=== PATIENT | male | born 1985 | race Caucasian/White ===

== ENCOUNTER 2023-10-14 16:00 | Outpatient (CLI) | payer BC | END 2023-10-14 16:01 | disposition home or self-care (01) | LOC: CSHSLEEP 16:00 | PROVIDERS: ATTEND Family Medicine | DX: G47.10 Hypersomnia, unspecified (principal); G47.9 Sleep disorder, unspecified; R53.83 Other fatigue; E66.9 Obesity, unspecified; Z68.41 Body mass index [BMI] 40.0-44.9, adult; G47.33 Obstructive sleep apnea (adult) (pediatric) | CPT/HCPCS: 95800 ==

== ENCOUNTER 2023-12-03 08:40 | Outpatient (CLI) | payer BC | END 2023-12-03 08:41 | disposition home or self-care (01) | LOC: CSHSLEEP 08:40 | PROVIDERS: ATTEND Family Medicine | DX: G47.10 Hypersomnia, unspecified (principal); G47.9 Sleep disorder, unspecified; R53.83 Other fatigue; E66.9 Obesity, unspecified; Z68.41 Body mass index [BMI] 40.0-44.9, adult; G47.33 Obstructive sleep apnea (adult) (pediatric) | CPT/HCPCS: 95811 ==